=== PATIENT | male | born 1965 | race African-American/Black ===

== ENCOUNTER 2018-11-25 05:57 | Inpatient (IN) | payer OTHER ==
[~2018-11-25] VITALS: Ht 188 cm; Wt 99.8 kg
[2018-11-25 06:49] LABS: BG BASE EXCESS -4.5 mmol/L (-2.0-2.0); BG DEOXYHEMOGLOBIN 4.7 % (0.0-5.0); BG FRACTION INSPIRED OXYGEN 21; BG HCO3 ACT 20.8 mmol/L (22.0-26.0); BG METHEMOGLOBIN 0.1 % (0.0-1.5); BG OXYGEN SATURATION 95.2 % (92.0-98.5); BG OXYHEMOGLOBIN 93.2 % (94.0-97.0); BG PCO2 39.1 mmHg (35.0-45.0); BG PH 7.343 (7.350-7.450); BG SAMPLE SITE RIGHT RADIAL; BG TOTAL HEMOGLOBIN 14.6 g/dL (12.0-18.0); BG VENT MODE ROOM AIR
[2018-11-25 07:38] LABS: CLARITY URINE CLEAR (CLEAR); COLOR URINE YELLOW (YELLOW); KETONES URINE TRACE (NEGATIVE); LEUKOCYTE ESTERASE URINE NEGATIVE (NEGATIVE); NITRITE URINE NEGATIVE (NEGATIVE); OCCULT BLOOD URINE 2+ (NEGATIVE); PROTEIN URINE 1+ (NEGATIVE); SPECIFIC GRAVITY URINE 1.015 (1.005-1.030); UROBILINOGEN URINE 0.2 E.U./dL (0.2-1.0)
[2018-11-25 08:23] LABS: *AMPHETAMINES SCREEN URINE NEGATIVE (NEGATIVE); *BARBITURATES SCREEN URINE NEGATIVE (NEGATIVE); *COCAINE SCREEN URINE NEGATIVE (NEGATIVE); CANNABINOID URINE SCREEN PRESUMTIVE POSITIVE (NEGATIVE); METHADONE URINE SCREEN NEGATIVE (NEGATIVE); OPIATES URINE SCREEN NEGATIVE (NEGATIVE); PHENCYCLIDINE URINE SCREEN NEGATIVE (NEGATIVE)
[2018-11-25 08:24] LABS: *BENZODIAZEPINES SCREEN URINE NEGATIVE (NEGATIVE)
[2018-11-25 08:48] LABS: BASOPHILS % 0.4 % (0.0-2.0); EOSINOPHILS % 0.9 % (0.0-5.0); HEMOGLOBIN. 14.7 g/dL (14.0-18.0); LYMPHOCYTES % 16.4 % (20.0-50.0); MEAN CORPUSCULAR HEMOGLOBIN 29.5 pg (28.0-32.0); MEAN CORPUSCULAR VOLUME 90.3 fL (80.0-94.0); MEAN PLATELET VOLUME 8.2 fl (7.4-10.4); MONOCYTES % 5.2 % (2.0-8.0); NEUTROPHILS % 77.1 % (40.0-76.0); PLATELET 232 x1000/uL (130-400); RED BLOOD CELL COUNT 4.98 mill/uL (4.7-6.1); RED CELL DISTRIBUTION WIDTH 13.7 % (11.6-14.6)
[2018-11-25 08:52] LABS: CHLORIDE 109 mEq/L (98-107)
[2018-11-25 08:58] LABS: ETHANOL BLOOD < 10 mg/dL
[2018-11-25] MEDS ORDERED: ACETAMINOPHEN 325MG TABLET PO PRN ×2 (10:15→12:30)
[2018-11-25] MEDS ORDERED: ONDANSETRON HCL 4MG/2ML INJ IV PRN (12:30)
[2018-11-25] MEDS ORDERED: IPRATROPIUM/ALBUTEROL 0.5-3(2.5)MG/3ML NEB INH PRN (12:30)
[2018-11-25] MEDS ORDERED: MAGNESIUM/ALUMINUM HYDROXIDE/SIMETHICONE 30ML UDC PO PRN (12:30)
[2018-11-25] MEDS ORDERED: DIPHENHYDRAMINE 50MG/ML VIAL IV PRN (12:30)
[2018-11-25] MEDS ORDERED: DOCUSATE SODIUM 100MG CAPSULE PO PRN (12:30)
[2018-11-25] MEDS ORDERED: CLONIDINE 0.1MG TABLET PO PRN (12:30)
[2018-11-25] MEDS ORDERED: GUAIFENESIN 200MG/10ML SUGAR FREE UDC PO PRN (12:30)
[2018-11-25] MEDS ORDERED: LORAZEPAM 2MG/ML CPJ IV PRN (12:30)
[2018-11-25 16:39] LABS: CHLORIDE 109 mEq/L (98-107)
[2018-11-25 16:48] LABS: T4 FREE 0.85 ng/dL (0.76-1.46)
[2018-11-25 16:50] LABS: CREATINE KINASE MB FRACTION 16.1 ng/mL (0.5-3.6)
[2018-11-25 17:04] LABS: CREATINE KINASE 2524 IU/L (39-308)
[2018-11-25] MEDS ORDERED: ENOXAPARIN 40MG/0.4ML SYR SUBCUT NR (17:30)
[2018-11-25 21:00] VITALS: BP 134/69
[2018-11-25] MEDS ORDERED: NA PHOS,M-B/NA PHOS,DI-BA ENEMA 118ML PR PRN (21:00)
[2018-11-25 21:05] VITALS: BP 132/68
[2018-11-25] MEDS ORDERED: HYDROMORPHONE HCL/PF 2MG/ML CPJ IV PRN (21:30)
[2018-11-25] MEDS ORDERED: SODIUM CHLORIDE 0.45% 1,000 ML IV SCH (21:30)
[2018-11-25] MEDS: HYDROCODONE/ACETAMINOPHEN 5/325MG TABLET PO PRN (22:51)
[2018-11-25] MEDS ORDERED: MULT-1146 MT (23:06)
[2018-11-25] MEDS ORDERED: IBUP-2028 PO (23:06)
[2018-11-26] VITALS: BP 130/53
[2018-11-26 00:06] LABS: CREATINE KINASE MB FRACTION 12.8 ng/mL (0.5-3.6)
[2018-11-26 04:00] VITALS: BP 113/64
[2018-11-26] MEDS: HYDROCODONE/ACETAMINOPHEN 5/325MG TABLET PO PRN ×5 (05:38→22:45)
[2018-11-26 06:41] LABS: BASOPHILS % 0.7 % (0.0-2.0); EOSINOPHILS % 2.9 % (0.0-5.0); HEMATOCRIT. 41.9 % (42.0-52.0); LYMPHOCYTES % 34.9 % (20.0-50.0); MEAN CORPUSCULAR HEMOGLOBIN 29.6 pg (28.0-32.0); MEAN CORPUSCULAR VOLUME 88.3 fL (80.0-94.0); MEAN PLATELET VOLUME 8.2 fl (7.4-10.4); MONOCYTES % 6.6 % (2.0-8.0); NEUTROPHILS % 54.9 % (40.0-76.0); PLATELET 216 x1000/uL (130-400); RED BLOOD CELL COUNT 4.74 mill/uL (4.7-6.1); RED CELL DISTRIBUTION WIDTH 13.4 % (11.6-14.6)
[2018-11-26 07:03] LABS: CHLORIDE 109 mEq/L (98-107)
[2018-11-26 07:19] LABS: LDL CHOLESTEROL 84 mg/dL (5-100)
[2018-11-26 07:20] LABS: CREATINE KINASE MB FRACTION 10.2 ng/mL (0.5-3.6)
[2018-11-26 07:22] LABS: HDL CHOLESTEROL 65 mg/dL (40-59); T4 FREE 1.07 ng/dL (0.76-1.46)
[2018-11-26 07:34] LABS: CREATINE KINASE 2744 IU/L (39-308)
[2018-11-26 08:00] VITALS: BP_SYST 119; BP_SYST 120; BP_SYST 121; BP_DIAS 71; BP_DIAS 76; BP_DIAS 79
[2018-11-26] MEDS: ASPIRIN 81MG EC TABLET PO SCH (08:47)
[2018-11-26] MEDS: ENOXAPARIN 30MG/0.3ML SYR SUBCUT SCH ×2 (08:48→21:13)
[2018-11-26 12:00] VITALS: BP 111/60
[2018-11-26] MEDS: SODIUM CHLORIDE 0.9% 1,000 ML IV SCH (14:05)
[2018-11-26 16:00] VITALS: BP_SYST 134; BP_SYST 140; BP_SYST 147; BP_DIAS 75; BP_DIAS 76; BP_DIAS 80
[2018-11-26 20:00] VITALS: BP 119/76
[2018-11-27] VITALS: BP 125/77
[2018-11-27 04:00] VITALS: BP 112/41
[2018-11-27] MEDS: SODIUM CHLORIDE 0.9% 1,000 ML IV SCH ×2 (05:15→20:45)
[2018-11-27 07:06] LABS: CHLORIDE 108 mEq/L (98-107)
[2018-11-27 08:00] VITALS: BP 130/60
[2018-11-27 08:01] LABS: BASOPHILS % 0.6 % (0.0-2.0); EOSINOPHILS % 4.4 % (0.0-5.0); HEMATOCRIT. 40.9 % (42.0-52.0); HEMOGLOBIN. 13.6 g/dL (14.0-18.0); LYMPHOCYTES % 45.5 % (20.0-50.0); MEAN CORPUSCULAR HEMOGLOBIN 29.2 pg (28.0-32.0); MEAN CORPUSCULAR VOLUME 88.2 fL (80.0-94.0); MEAN PLATELET VOLUME 8.4 fl (7.4-10.4); MONOCYTES % 6.5 % (2.0-8.0); PLATELET 216 x1000/uL (130-400); RED BLOOD CELL COUNT 4.64 mill/uL (4.7-6.1); RED CELL DISTRIBUTION WIDTH 13.2 % (11.6-14.6)
[2018-11-27] MEDS: ASPIRIN 81MG EC TABLET PO SCH (09:09)
[2018-11-27] MEDS: ENOXAPARIN 30MG/0.3ML SYR SUBCUT SCH ×2 (09:10→20:34)
[2018-11-27] MEDS: HYDROCODONE/ACETAMINOPHEN 5/325MG TABLET PO PRN ×2 (09:11→20:33)
[2018-11-27] MEDS ORDERED: REGADENOSON 0.4 MG/5 ML IV NR (09:15)
[2018-11-27] MEDS ORDERED: REGADENOSON 0.4 MG/5 ML IV ONE (11:11)
[2018-11-27 12:00] VITALS: BP 116/72
[2018-11-27 16:00] VITALS: BP 119/58
[2018-11-27 20:00] VITALS: BP 145/90
[2018-11-28] VITALS: BP 133/73
[2018-11-28] MEDS: HYDROCODONE/ACETAMINOPHEN 5/325MG TABLET PO PRN ×3 (01:21→14:41)
[2018-11-28 04:00] VITALS: BP 130/72
[2018-11-28 07:11] LABS: CHLORIDE 108 mEq/L (98-107)
[2018-11-28 07:11] LABS: BASOPHILS % 0.8 % (0.0-2.0); EOSINOPHILS % 4.1 % (0.0-5.0); HEMATOCRIT. 43.2 % (42.0-52.0); HEMOGLOBIN. 14.3 g/dL (14.0-18.0); LYMPHOCYTES % 51.1 % (20.0-50.0); MEAN CORPUSCULAR HEMOGLOBIN 29.4 pg (28.0-32.0); MEAN CORPUSCULAR VOLUME 88.7 fL (80.0-94.0); MEAN PLATELET VOLUME 8.1 fl (7.4-10.4); PLATELET 230 x1000/uL (130-400); RED BLOOD CELL COUNT 4.87 mill/uL (4.7-6.1); RED CELL DISTRIBUTION WIDTH 13.5 % (11.6-14.6)
[2018-11-28 07:30] LABS: CREATINE KINASE 1877 IU/L (39-308)
[2018-11-28 08:00] VITALS: BP 125/65
[2018-11-28] MEDS: ENOXAPARIN 30MG/0.3ML SYR SUBCUT SCH (08:57)
[2018-11-28] MEDS: ASPIRIN 81MG EC TABLET PO SCH (08:57)
[2018-11-28 12:19] VITALS: BP 159/93
[2018-11-28] MEDS ORDERED: LEVETIRACETAM 500MG TABLET PO SCH (14:15)
[2018-11-28 14:35] VITALS: BP_SYST 131; BP_SYST 159; BP_DIAS 75; BP_DIAS 93
[2018-11-28] MEDS: SODIUM CHLORIDE 0.9% 1,000 ML IV SCH (14:41)
[2018-11-28 16:05] VITALS: BP 131/75
[2018-11-28] MEDS ORDERED: HYDR-4001 MT (16:34)
== END 2018-11-28 18:35 | disposition home or self-care (01) | DRG 48 ==
LOC: ER 05:57 → 5WST 09:30 → ENRESERV 19:55 → EDBEDREQ 20:56
PROVIDERS: ADMIT Internal Medicine; ATTEND Internal Medicine
PROC: 4A00X4Z Measurement of Central Nervous Electrical Activity, External Approach (ICD-10-PCS; principal; 2018-11-25)
DX: G90.8 Other disorders of autonomic nervous system (principal); G93.40 Encephalopathy, unspecified; M62.82 Rhabdomyolysis; R56.9 Unspecified convulsions; E86.0 Dehydration; I10 Essential (primary) hypertension; S01.512A Laceration without foreign body of oral cavity, initial encounter; W19.XXXA Unspecified fall, initial encounter; Y92.009 Unspecified place in unspecified non-institutional (private) residence as the place of occurrence of the external cause
CPT/HCPCS: 36415; 36600; 70551; 71045; 78452; 80048; 80061; 80305; 82375; 82550; 82553; 82805; 82962; 83036; 83880; 84439; 84443; 84484; 85379; 93005; 93017; 93306; 93970; 99285; A9500; J1650; J2785; J7030

== ENCOUNTER 2020-02-23 08:36 | Emergency (ER) | payer OTHER ==
[~2020-02-23] VITALS: Ht 190.5 cm; Wt 109.0 kg
[~2020-02-23 08:36] MED LIST: HYDR-4001 MT; IBUP-2028 PO; MULT-1146 MT
[2020-02-23] MEDS ORDERED: LEVETIRACETAM 1000MG/100ML 100 ML IV ONE (09:15)
[2020-02-23 09:27] LABS: BASOPHILS % 0.7 % (0.0-2.0); EOSINOPHILS % 3.4 % (0.0-5.0); HEMATOCRIT. 44.8 % (42.0-52.0); HEMOGLOBIN. 14.9 g/dL (14.0-18.0); LYMPHOCYTES % 46.8 % (20.0-50.0); MEAN CORPUSCULAR HEMOGLOBIN 29.6 pg (28.0-32.0); MEAN CORPUSCULAR VOLUME 89.1 fL (80.0-94.0); MEAN PLATELET VOLUME 7.6 fl (7.4-10.4); MONOCYTES % 5.6 % (2.0-8.0); NEUTROPHILS % 43.5 % (40.0-76.0); PLATELET 220 x1000/uL (130-400); RED BLOOD CELL COUNT 5.03 mill/uL (4.7-6.1); RED CELL DISTRIBUTION WIDTH 13.4 % (11.6-14.6)
[2020-02-23 09:28] LABS: CLARITY URINE CLEAR (CLEAR); COLOR URINE YELLOW (YELLOW); KETONES URINE NEGATIVE (NEGATIVE); LEUKOCYTE ESTERASE URINE NEGATIVE (NEGATIVE); NITRITE URINE NEGATIVE (NEGATIVE); OCCULT BLOOD URINE 1+ (NEGATIVE); PH URINE 5.5 (4.5-8.0); PROTEIN URINE TRACE (NEGATIVE); SPECIFIC GRAVITY URINE 1.012 (1.005-1.030); UROBILINOGEN URINE 0.2 E.U./dL (0.2-1.0)
[2020-02-23 09:33] LABS: CHLORIDE 108 mEq/L (98-107)
[2020-02-23 09:38] LABS: ETHANOL BLOOD < 10 mg/dL
[2020-02-23 09:50] LABS: *AMPHETAMINES SCREEN URINE NEGATIVE (NEGATIVE); *BARBITURATES SCREEN URINE NEGATIVE (NEGATIVE); *BENZODIAZEPINES SCREEN URINE NEGATIVE (NEGATIVE); *COCAINE SCREEN URINE NEGATIVE (NEGATIVE); CANNABINOID URINE SCREEN PRESUMTIVE POSITIVE (NEGATIVE); OPIATES URINE SCREEN NEGATIVE (NEGATIVE); PHENCYCLIDINE URINE SCREEN NEGATIVE (NEGATIVE)
[2020-02-23 09:51] LABS: METHADONE URINE SCREEN NEGATIVE (NEGATIVE)
[2020-02-23 11:39] VITALS: BP 142/77
== END 2020-02-23 11:43 | disposition home or self-care (01) ==
LOC: ER 08:36
DX: G40.909 Epilepsy, unspecified, not intractable, without status epilepticus (principal)
CPT/HCPCS: 36415; 80053; 80305; 80320; 81003; 85025; 96365; 99284; J1953; G0480